=== PATIENT | female | born 1975 | race African-American/Black ===

== ENCOUNTER 2016-10-03 08:34 | Emergency (ER) | payer OTHER ==
[~2016-10-03] VITALS: Ht 160 cm; Wt 108.9 kg
[~2016-10-03 08:34] MED LIST: CELEXA40 MG; CLONAZEPAM 1 MG1 M1; TRAZODONE 150150 M1
[2016-10-03] MEDS ORDERED: OSELB75 PO (09:43)
[2016-10-03 10:31] VITALS: BP 134/91
== END 2016-10-03 10:32 | disposition home or self-care (01) ==
LOC: ER 08:34
DX: J10.1 Influenza due to other identified influenza virus with other respiratory manifestations (principal); F10.99 Alcohol use, unspecified with unspecified alcohol-induced disorder

== ENCOUNTER 2017-05-21 11:58 | Emergency (ER) | payer OTHER ==
[~2017-05-21] VITALS: Ht 160 cm; Wt 108.9 kg
[~2017-05-21 11:58] MED LIST changes: +OSELB75 PO
[2017-05-21] MEDS ORDERED: VENTOLIN HFA 1818 GM INH (12:25)
[2017-05-21] MEDS ORDERED: TESSALON PERLE100 MG PO (12:25)
[2017-05-21] MEDS ORDERED: ALLEGRA-D 12 H1 EAC1 PO (12:25)
[2017-05-21] MEDS ORDERED: PREDNISONE 20 M20 MG PO (12:25)
[2017-05-21 13:43] VITALS: BP 142/99
== END 2017-05-21 13:44 | disposition home or self-care (01) ==
LOC: ER 11:58
DX: J06.9 Acute upper respiratory infection, unspecified (principal); J40 Bronchitis, not specified as acute or chronic; F17.210 Nicotine dependence, cigarettes, uncomplicated; F10.99 Alcohol use, unspecified with unspecified alcohol-induced disorder

== ENCOUNTER 2017-09-05 06:22 | Emergency (ER) | payer OTHER ==
[~2017-09-05] VITALS: Ht 160 cm; Wt 108.9 kg
[~2017-09-05 06:22] MED LIST changes: +ALLEGRA-D 12 H1 EAC1 PO; +PREDNISONE 20 M20 MG PO; +TESSALON PERLE100 MG PO; +VENTOLIN HFA 1818 GM INH
[2017-09-05 06:24] VITALS: BP 150/96
[2017-09-05 07:29] LABS: URINE BILIRUBIN NEGATIVE (Negative); URINE BLOOD NEGATIVE (Negative); URINE COLOR YELLOW; URINE GLUCOSE-RANDOM* NEGATIVE (Negative); URINE KETONES NEGATIVE (Negative); URINE LEUKOCYTES-REFLEX NEGATIVE (Negative); URINE PROTEIN (DIPSTICK) NEGATIVE (Negative); URINE SPECIFIC GRAVITY 1.025 (1.005-1.035); URINE UROBILINOGEN 0.2 E.U./dl (0.2-1.0)
[2017-09-05 07:29] LABS: HEMOGLOBIN 9.7 gm/dL (12.0-15.0); MCH 21.3 pg (26.0-34.0); MCHC 31.2 g/dL (28.0-37.0); MCV 68.1 fL (80.0-100.0); RBC 4.56 mil/uL (4.20-5.00); RDW 18.4 % (10.5-14.5); WBC 6.9 thou/uL (4.0-11.0)
[2017-09-05 07:38] LABS: CALCIUM 8.8 mg/dL (8.5-10.1); CREATININE 0.6 mg/dL (0.6-1.0); POTASSIUM 3.7 mmol/L (3.5-5.1)
[2017-09-05 07:44] LABS: ALBUMIN 3.3 g/dL (3.4-5.0); TOTAL BILIRUBIN 0.3 mg/dL (<0.1-1.0); TOTAL PROTEIN 7.4 g/dL (6.4-8.2)
[2017-09-05] MEDS ORDERED: CIPRO500 MG PO (08:29)
[2017-09-05] MEDS ORDERED: NORCO 5-325 TA1 EACH PO (08:29)
== END 2017-09-05 09:37 | disposition home or self-care (01) ==
LOC: ER 06:22
PROVIDERS: Emergency Medicine
DX: K43.9 Ventral hernia without obstruction or gangrene (principal); Z98.890 Other specified postprocedural states; F17.210 Nicotine dependence, cigarettes, uncomplicated

== ENCOUNTER 2017-09-30 05:18 | Day surgery (SDC) | payer OTHER ==
[~2017-09-30] VITALS: Ht 157.5 cm; Wt 112.5 kg
--- NOTE | ~2017-09-30 | O ---
[facility] [place] [address] OPERATIVE REPORT Name: THERESE CHAPARRITA,DAREK D Room #: DEP [facility].#: [id number] Admission: 09/30/17 Attend Phys: Jayme Washington MD Discharge: 09/30/17 Date of : 77 Report #: [id number] THIS REPORT FOR: //name// CC: Mj Washington DATE OF SERVICE: 09/30/2017 PATIENT OF: Dr. Jayme Washington and Dr. Mj Anderson. PREOPERATIVE DIAGNOSIS: Incarcerated ventral epigastric hernia. POSTOPERATIVE DIAGNOSES: Incarcerated ventral epigastric hernia and umbilical hernia. PROCEDURE: Repair of an incarcerated ventral epigastric hernia with extensive lysis of adhesions doubling the operative time and repair of an umbilical hernia. SURGEON: Jayme Washington MD ANESTHESIA: General. The patient was brought to the operating room and placed on operative table in the supine position. Sequential compression devices were in place for DVT prophylaxis. There was no indication for preoperative antibiotics. The patient underwent a general endotracheal anesthesia and the abdomen was then prepped and draped in a sterile fashion. Skin and subcutaneous tissue around this hernia in the epigastric area was infiltrated with 0.5% Marcaine. A supraumbilical transverse incision was performed using a #10 scalpel blade. Hemostasis obtained using electrocautery. Dissection was carried down through the subcutaneous tissue, this large incarcerated ventral epigastric hernia sac, which was then dissected free down to the fascia. The sac was then clamped with 2 clamps and incised with the Metzenbaum scissors. Upon entering the sac, there was a large portion of omentum that was adherent to the sac. This omentum was carefully dissected free using the electrocautery as well as clamps and 2-0 chromic ties. Once I was able to dissect the omentum free, I was able to then reduce it back into the abdomen and I placed a finger intraabdominally and clearly I was able to palpate an umbilical hernia as well. There were multiple adhesions around this fascial opening, these were carefully dissected free using the Metzenbaum scissors and electrocautery and dissecting down to almost the infraumbilical suprapubic area. I then also dissected in the anterior midline, numerous adhesions . This lysis of adhesions and extensive dissection of the hernia sac doubled the operative time in this very large hernia and very large woman. After dissecting free the fascia and excising the hernia sac, it [facility] [address] [place] [address] OPERATIVE REPORT Name: DAREK ROBIN Room #: DEP [facility]very#: [id number] Admission: 09/30/17 Attend Phys: Jayme Washington MD Discharge: 09/30/17 Date of : 77 Report #: [id number] was sent to pathology for permanent study. I then dissected free the umbilical hernia and I closed the umbilical fascial defect using interrupted kuqcyi-ce-bymau #1 Prolene sutures. I then used a large Ventralex hernia patch, which was inserted intraabdominally and it was secured circumferentially, transfascially starting inferior to the umbilicus with 0 Prolene sutures placed transfascially through the ring of the mesh patch and tied anteriorly. This was secured circumferentially using these 0 Prolene sutures. I then closed the fascia over the mesh using interrupted kdivpg-su-xmcky #1 Prolene sutures. The tails on the patch were then cut and secured superiorly and inferiorly with a simple interrupted 2-0 Vicryl suture. I then placed a central astopb-ez-ketqb #1 Prolene completing the closure of the fascia. The area was copiously irrigated with warm saline solution, which was suctioned free and the skin, subcutaneous tissue and fascia were all infiltrated with 0.5% Marcaine. The deep and superficial subcutaneous tissue was then reapproximated using simple interrupted 2-0 Vicryl and 0 chromic sutures. Skin was then closed using running 4-0 subcuticular Vicryl stitch. Wound was then dressed with Mastisol, 1/2-inch Steri-Strips cut in half, Telfa, 4 x 4 gauze, sponge and tape. Abdominal binder was then placed on the patient. The patient was then awakened from the general endotracheal anesthesia, extubated, and taken to recovery room in good condition. Estimated blood loss was approximately 30 mL and the patient tolerated the procedure well. All sponge, lap and instrument counts correct times 2. <ELECTRONICALLY SIGNED> By: Jayme Washington MD 10/13/17 [id number] Jayme Washington MD /nt
--- NOTE | ~2017-09-30 | S ---
[facility] [place] [address] SURGICAL PATH RPT PROCEDURE Name: DAREK ROBIN Room #: 150-4 [facility] M.R.#: [id number] Admission: 09/30/17 Date of : 77 Discharge: Report #: [id number] Path Case #: [id number] PATHOLOGY REPORT COLLECTION DATE: 09/30/2017 RECEIVED DATE: 09/30/2017 SUBMITTING PHYS: Dr. Jayme Washington OTHER PHYS: Dr. Mj Anderson SPECIMEN(S) RECEIVED: A.Hernia sac * * * * * * * * * * * * FINAL DIAGNOSIS: "Hernia sac," herniorrhaphy: - Hernia sac with associated fibrosis and focal mild chronic inflammation. (SKM:[place]or; 10/01/2017) PATHOLOGIST: Arturo Sawyer M.D. REPORT ELECTRONICALLY SIGNED BY: Arturo Sawyer M.D. DATE/TIME: 10/01/2017 15:50 * * * * * * * * * * * * GROSS PATHOLOGY: Received in formalin labeled "Darek Cheatham hernia sac" and consists of purple pink fibromembranous tissue with attached fibroadipose tissue, 11.0 x 6.0 x 2.2 cm. Sectioning reveals no masses or lesions. Represent sections are submitted as A1. ([place]; 09/30/2017) CLINICAL HISTORY: Not provided INITIAL CPT CODE(S): A; 84697 Professional services performed by [facility] at [facility] [address], [place] [address] Technical services performed by [facility] at [address] [place] [address], [place] [address], [place] [address]. [facility] [address] [place] [address] SURGICAL PATH RPT PROCEDURE Name: DAREK ROBIN Room #: 150-4 [facility] M.R.#: [id number] Admission: 09/30/17 Date of : 77 Discharge: Report #: [id number] Path Case #: [id number] [place] [place] [id number] [address] [address] PHONE: [phone] DIRECTOR: Tristan Stover M.D. * * * END OF REPORT * * *
[~2017-09-30 05:18] MED LIST changes: +ACCUNEB SO1.25 MG/1 INH; +CENTRUM SILVER1 EAC4 PO; +CIPRO500 MG PO; +CLARITIN10 MG PO; +NORCO 5-325 TA1 EACH PO
[2017-09-30] MEDS ORDERED: NORCO 5-325 TA1 EACH PO (14:57)
== END 2017-09-30 16:45 | disposition home or self-care (01) ==
LOC: TBA 05:18 → OR 05:18 → TBA 05:19 → OR 11:41
DX: K43.6 Other and unspecified ventral hernia with obstruction, without gangrene (principal); K42.9 Umbilical hernia without obstruction or gangrene; F17.210 Nicotine dependence, cigarettes, uncomplicated
CPT/HCPCS: 50010; 50101; 50386; 50404; 50621; 56524; 56525; 56526; 62110; 62900; 70005